=== PATIENT | male | born 1960 | race Caucasian/White ===

== ENCOUNTER → 2021-04-26 | Outpatient (CLI) | payer OTHER ==
[~2021-04-26] MED LIST: CLON2TAB3 PO; NAPR-243 PO; TRM50T PO
--- NOTE | 2021-04-26 15:00 | Diagnostic Imaging Report ---
PROCEDURE: US Renal Bilateral. TECHNIQUE: Multiple real-time grayscale images were obtained over the kidneys in various projections bilaterally. INDICATION: Kidney disease. FINDINGS: Right kidney measures 11.5 x 6.5 x 6.0 cm and the left kidney measures 10.7 x 5.3 x 6.2 cm. Cortical thickness and echogenicity are normal. No calculi are seen. There is no hydronephrosis. Prevoid bladder volume is 497 mL. Postvoid volume is 355 mL. Ureteral jets were visualized. There is a lobulated mass in the bladder measuring 1.9 x 1.4 x 2.2 cm. IMPRESSION: 1. No evidence of renal calculi or hydronephrosis. 2. Large postvoid residual bladder volume. 3. Bladder mass. Cystoscopy is recommended. Dictated by: Dictated on workstation # [id number]
== END ==
LOC: RAD 11:44
PROVIDERS: ATTEND Nurse Practitioner
DX: N32.9 Bladder disorder, unspecified (principal); N18.31 Chronic kidney disease, stage 3a
CPT/HCPCS: 76770